=== PATIENT | female | born 1995 | race Caucasian/White ===

== ENCOUNTER 2017-02-09 12:59 | Inpatient (IN) | payer BC, OTHER ==
[~2017-02-09] VITALS: Ht 160 cm; Wt 71.7 kg
[2017-02-09] MEDS ORDERED: MAGNESIUM HYDROXIDE 30 ML LIQUID UDC PO PRN (17:00)
[2017-02-09] MEDS ORDERED: MIRALAX 17 GM POWD.PACK PO PRN (17:00)
[2017-02-09] MEDS ORDERED: LOPERAMIDE HCL 2 MG CAPSULE PO PRN ×2 (17:00)
[2017-02-09] MEDS ORDERED: HYDROXYZINE PAMOATE 25 MG CAPSULE PO PRN (17:00)
[2017-02-09] MEDS ORDERED: DICYCLOMINE HCL 20 MG TABLET PO PRN (17:00)
[2017-02-09] MEDS ORDERED: diphenhydrAMINE 50 MG CAPSULE PO PRN (17:00)
[2017-02-09] MEDS ORDERED: IBUPROFEN 400 MG TABLET PO PRN (17:00)
[2017-02-09] MEDS ORDERED: ACETAMINOPHEN 325 MG TABLET PO PRN (17:00)
[2017-02-09] MEDS ORDERED: ONDANSETRON ODT 4 MG TAB.RAPDIS SL PRN (17:00)
[2017-02-09] MEDS ORDERED: ONDANSETRON 4 MG/2 ML VIAL IM PRN (17:00)
[2017-02-09] MEDS ORDERED: MAG HYDROX/AL HYDROX/SIMETH 30 ML LIQUID UDC PO PRN (17:00)
[2017-02-09] MEDS ORDERED: QUET100T PO (17:39)
[2017-02-09] MEDS ORDERED: GABA300S PO ×2 (17:39)
[2017-02-09] MEDS ORDERED: CLON0.1T14 PO (17:39)
[2017-02-09] MEDS ORDERED: METH-406 PO (17:39)
[2017-02-09] MEDS ORDERED: ONDA8TAB9 PO (17:39)
[2017-02-09] MEDS ORDERED: HYDR-3026 PO (17:39)
[2017-02-09] MEDS ORDERED: BUPR2TAB3 SL (17:39)
[2017-02-09 18:44] LABS: *URINE HCG, QUAL NEGATIVE (NEGATIVE)
[2017-02-09 18:55] LABS: *AMPHETAMINE, URINE POSITIVE (NEGATIVE); *BARBITURATE, URINE NEGATIVE (NEGATIVE); *CANNABINOID, URINE NEGATIVE (NEGATIVE); *COCCAINE, URINE NEGATIVE (NEGATIVE); *OPIATE, URINE POSITIVE (NEGATIVE); *PHENCYCLIDINE SCREEN,URINE NEGATIVE (NEGATIVE)
[2017-02-09 19:36] LABS: BASOPHILS % (AUTO) 0.1 % (0.0-2.0); EOSINOPHILS % (AUTO) 0.7 % (0.0-7.0); HEMATOCRIT 42.2 % (31.2-41.9); HEMOGLOBIN 14.4 g/dL (10.9-14.3); LYMPHOCYTES # (AUTO) 1.3 K/uL (20.0-40.0); LYMPHOCYTES % (AUTO) 21.4 % (20.5-51.5); MEAN CORPUSCULAR HEMOGLOBIN 28.9 uug (24.7-32.8); MEAN CORPUSCULAR HGB CONC 34 g/dL (32.3-35.6); MEAN CORPUSCULAR VOLUME 84.6 fL (75.5-95.3); MONOCYTES # (AUTO) 0.5 K/uL (2.0-10.0); MONOCYTES % (AUTO) 8.7 % (0.0-11.0); NEUTROPHILS # (AUTO) 4.2 K/uL (1.8-8.9); NEUTROPHILS % (AUTO) 69.1 % (38.5-71.5); PLATELET COUNT (AUTO) 227 K/uL (179-408); RED BLOOD CELL COUNT(AUTO) 4.98 MIL/uL (3.63-4.92); RED CELL DISTRIBUTION WIDTH 11.8 % (12.3-17.7)
[2017-02-09 19:45] LABS: ALANINE AMINOTRANSFERASE 33 U/L (14-59); ALKALINE PHOSPHATASE 100 U/L (50-136); ASPARTATE AMINOTRANSFERASE 25 U/L (15-37); BILIRUBIN,TOTAL 0.7 mg/dL (0.2-1.0); CALCIUM 9.4 mg/dL (8.5-10.1); CARBON DIOXIDE 28 mmol/L (21-32); CHLORIDE 105 mmol/L (98-107); CREATININE 0.8 mg/dL (0.6-1.3); GFR 90 mL/min (>60); GLUCOSE 105 mg/dL (74-106); MAGNESIUM 2.3 mg/dL (1.8-2.4); SODIUM SERUM 144 mmol/L (136-145); TOTAL PROTEIN, SERUM 8.2 g/dL (6.4-8.2); UREA NITROGEN, BLOOD 6 mg/dL (7-18)
[2017-02-09] MEDS: BUPRENORPHINE HCL 2 MG TAB.SUBL SL PRN (19:47)
[2017-02-09 19:54] LABS: THYROID STIMULATING HORMONE 0.303 mIU/mL (0.358-3.740)
[2017-02-09 20:00] VITALS: BP 146/93
[2017-02-09 20:12] LABS: ETHANOL < 3 MG/DL (0-0)
[2017-02-09 20:14] LABS: HIV-1 p24 ANTIGEN NON REACTIVE (NONREACTIVE); HIV-1/2 ANTIBODY NON REACTIVE (NONREACTIVE)
[2017-02-09] MEDS: METHOCARBAMOL 750 MG TABLET PO PRN (20:21)
[2017-02-10] VITALS (7 sets, daily range): BP systolic 116–142; BP diastolic 78–91
[2017-02-10] MEDS: BUPRENORPHINE HCL 2 MG TAB.SUBL SL PRN (00:08)
[2017-02-10] MEDS: CLONIDINE HCL 0.1 MG TABLET PO PRN ×2 (00:18→20:49)
[2017-02-10] MEDS: GABAPENTIN 300 MG CAPSULE PO SCH ×3 (08:21→20:42)
[2017-02-10] MEDS: MULTIVITAMINS,THERAPEUTIC TABLET PO SCH (08:21)
[2017-02-10] MEDS ORDERED: BUPRENORPHINE HCL 2 MG TAB.SUBL SL SCH (09:00)
[2017-02-10] MEDS ORDERED: TUBERCULIN,PURIF.PROT.DERIV. 5 TU/0.1 ML TEST ID ONE (09:00)
[2017-02-10] MEDS ORDERED: LORAZEPAM 2 MG/1 ML VIAL IM PRN (12:15)
[2017-02-10] MEDS ORDERED: DIAZEPAM 10 MG TABLET PO PRN ×2 (12:15)
[2017-02-10] MEDS ORDERED: DIAZEPAM 5 MG TABLET PO PRN (12:15)
[2017-02-10] MEDS: DIAZEPAM 10 MG TABLET PO SCH ×3 (12:31→20:43)
[2017-02-10] MEDS: BUPRENORPHINE HCL 2 MG TAB.SUBL SL SCH ×3 (12:31→20:43)
[2017-02-10] MEDS: METHOCARBAMOL 750 MG TABLET PO PRN (20:43)
[2017-02-10] MEDS: QUETIAPINE FUMARATE 100 MG TABLET PO SCH (20:43)
[2017-02-11] VITALS: BP_SYST 111; BP_SYST 98; BP_DIAS 45; BP_DIAS 71
[2017-02-11] MEDS ORDERED: HYDROXYZINE PAMOATE 25 MG CAPSULE ONE (00:10)
[2017-02-11] MEDS: HYDROXYZINE PAMOATE 25 MG CAPSULE PO PRN ×2 (00:10→17:19)
[2017-02-11 04:00] VITALS: BP 98/45
[2017-02-11 08:00] VITALS: BP 104/61
[2017-02-11 08:16] LABS: BASOPHILS % (AUTO) 0.2 % (0.0-2.0); EOSINOPHILS # (AUTO) 0.2 K/uL (0.0-0.7); EOSINOPHILS % (AUTO) 2.2 % (0.0-7.0); LYMPHOCYTES % (AUTO) 37.7 % (20.5-51.5); MEAN CORPUSCULAR HEMOGLOBIN 29.1 uug (24.7-32.8); MEAN CORPUSCULAR HGB CONC 35 g/dL (32.3-35.6); MEAN CORPUSCULAR VOLUME 84.3 fL (75.5-95.3); MONOCYTES # (AUTO) 0.8 K/uL (2.0-10.0); MONOCYTES % (AUTO) 10.4 % (0.0-11.0); NEUTROPHILS % (AUTO) 49.5 % (38.5-71.5); PLATELET COUNT (AUTO) 188 K/uL (179-408); RED BLOOD CELL COUNT(AUTO) 4.45 MIL/uL (3.63-4.92); RED CELL DISTRIBUTION WIDTH 11.9 % (12.3-17.7)
[2017-02-11 08:23] LABS: HEMATOCRIT 37.5 % (31.2-41.9)
[2017-02-11] MEDS ORDERED: DIAZEPAM 5 MG TABLET PO SCH (09:00)
[2017-02-11] MEDS ORDERED: BUPRENORPHINE HCL 2 MG TAB.SUBL SL SCH ×2 (09:00→15:00)
[2017-02-11] MEDS: GABAPENTIN 300 MG CAPSULE PO SCH ×3 (09:14→21:33)
[2017-02-11] MEDS: BUPRENORPHINE HCL 2 MG TAB.SUBL SL SCH ×3 (09:14→21:33)
[2017-02-11] MEDS: MULTIVITAMINS,THERAPEUTIC TABLET PO SCH (09:14)
[2017-02-11 10:14] LABS: CREATININE 0.8 mg/dL (0.6-1.3); MAGNESIUM 2.3 mg/dL (1.8-2.4); PHOSPHOROUS 5.7 mg/dL (2.5-4.9); POTASSIUM 4.4 mmol/L (3.5-5.1)
[2017-02-11 12:00] VITALS: BP 126/61
[2017-02-11] MEDS: DIAZEPAM 10 MG TABLET PO SCH ×3 (13:28→21:33)
[2017-02-11 16:00] VITALS: BP 122/76
[2017-02-11] MEDS: CLONIDINE HCL 0.1 MG TABLET PO PRN (17:19)
[2017-02-11 17:59] LABS: THYROID STIMULATING HORMONE 1.562 mIU/mL (0.358-3.740)
[2017-02-11 20:19] VITALS: BP 130/78
[2017-02-11] MEDS: QUETIAPINE FUMARATE 100 MG TABLET PO SCH (21:33)
[2017-02-12 00:39] VITALS: BP 100/55
[2017-02-12 04:15] VITALS: BP 104/53
[2017-02-12 07:48] LABS: BASOPHILS % (AUTO) 0.4 % (0.0-2.0); EOSINOPHILS # (AUTO) 0.3 K/uL (0.0-0.7); EOSINOPHILS % (AUTO) 4.1 % (0.0-7.0); HEMATOCRIT 39.8 % (31.2-41.9); HEMOGLOBIN 13.5 g/dL (10.9-14.3); LYMPHOCYTES # (AUTO) 3.4 K/uL (20.0-40.0); LYMPHOCYTES % (AUTO) 55.5 % (20.5-51.5); MEAN CORPUSCULAR HEMOGLOBIN 28.5 uug (24.7-32.8); MEAN CORPUSCULAR HGB CONC 34 g/dL (32.3-35.6); MEAN CORPUSCULAR VOLUME 84.3 fL (75.5-95.3); MONOCYTES # (AUTO) 0.7 K/uL (2.0-10.0); MONOCYTES % (AUTO) 11.2 % (0.0-11.0); NEUTROPHILS # (AUTO) 1.8 K/uL (1.8-8.9); NEUTROPHILS % (AUTO) 28.8 % (38.5-71.5); PLATELET COUNT (AUTO) 192 K/uL (179-408); RED BLOOD CELL COUNT(AUTO) 4.72 MIL/uL (3.63-4.92); RED CELL DISTRIBUTION WIDTH 11.8 % (12.3-17.7); WHITE BLOOD COUNT (AUTO) 6.2 K/uL (3.8-11.8)
[2017-02-12 08:03] LABS: CALCIUM 9.1 mg/dL (8.5-10.1); CREATININE 0.7 mg/dL (0.6-1.3); MAGNESIUM 2.4 mg/dL (1.8-2.4); PHOSPHOROUS 5.4 mg/dL (2.5-4.9); POTASSIUM 4.3 mmol/L (3.5-5.1)
[2017-02-12 08:06] VITALS: BP 118/69
[2017-02-12] MEDS ORDERED: BUPRENORPHINE HCL 2 MG TAB.SUBL SL SCH ×2 (09:00)
[2017-02-12] MEDS ORDERED: DIAZEPAM 5 MG TABLET PO SCH (09:00)
[2017-02-12] MEDS: MULTIVITAMINS,THERAPEUTIC TABLET PO SCH (09:30)
[2017-02-12] MEDS: DIAZEPAM 5 MG TABLET PO SCH ×4 (09:30→20:58)
[2017-02-12] MEDS: GABAPENTIN 300 MG CAPSULE PO SCH ×3 (09:30→20:57)
[2017-02-12] MEDS ORDERED: IOHEXOL 350 100 ML INFUS..BTL ONE (11:26)
[2017-02-12] MEDS ORDERED: IV NORMAL SALINE 0 ML IV ONE (11:26)
[2017-02-12 13:10] VITALS: BP 130/81
[2017-02-12] MEDS: BUPRENORPHINE HCL 2 MG TAB.SUBL SL SCH ×2 (15:44→21:01)
[2017-02-12 18:00] VITALS: BP 141/80
[2017-02-12 20:00] VITALS: BP 140/88
[2017-02-12] MEDS: QUETIAPINE FUMARATE 100 MG TABLET PO SCH (20:57)
[2017-02-12] MEDS: CLONIDINE HCL 0.1 MG TABLET PO PRN (20:58)
[2017-02-13] VITALS: BP 118/75
[2017-02-13 04:00] VITALS: BP 108/61
[2017-02-13 05:06] LABS: HCV AB <0.1 s/co ratio (0.0-0.9); HEPATITIS B CORE AB, IgM Negative (Negative); HEPATITIS B SURFACE AG Negative (Negative)
[2017-02-13] MEDS ORDERED: IV NORMAL SALINE 250 ML IV ONE (06:43)
[2017-02-13] MEDS ORDERED: IOHEXOL 350 100 ML INFUS..BTL ONE (06:43)
[2017-02-13 08:00] VITALS: BP 106/68
[2017-02-13] MEDS ORDERED: BUPRENORPHINE HCL 2 MG TAB.SUBL SL SCH (09:00)
[2017-02-13] MEDS ORDERED: DIAZEPAM 5 MG TABLET PO SCH (09:00)
[2017-02-13] MEDS: DIAZEPAM 5 MG TABLET PO SCH ×3 (09:58→20:41)
[2017-02-13] MEDS: GABAPENTIN 300 MG CAPSULE PO SCH ×3 (09:58→20:41)
[2017-02-13] MEDS: MULTIVITAMINS,THERAPEUTIC TABLET PO SCH (09:58)
[2017-02-13] MEDS: BUPRENORPHINE HCL 2 MG TAB.SUBL SL SCH ×3 (09:59→20:40)
[2017-02-13 12:00] VITALS: BP 111/70
[2017-02-13 16:00] VITALS: BP 116/85
[2017-02-13 20:00] VITALS: BP 110/61
[2017-02-13] MEDS: QUETIAPINE FUMARATE 100 MG TABLET PO SCH (20:41)
[2017-02-14] VITALS (7 sets, daily range): BP systolic 102–145; BP diastolic 62–94
[2017-02-14] MEDS ORDERED: BUPRENORPHINE HCL 2 MG TAB.SUBL SL SCH (09:00)
[2017-02-14] MEDS: GABAPENTIN 300 MG CAPSULE PO SCH ×3 (09:10→20:33)
[2017-02-14] MEDS: BUPRENORPHINE HCL 2 MG TAB.SUBL SL SCH ×2 (09:11→20:33)
[2017-02-14] MEDS: MULTIVITAMINS,THERAPEUTIC TABLET PO SCH (09:11)
[2017-02-14] MEDS: DIAZEPAM 5 MG TABLET PO SCH ×2 (09:11→20:33)
[2017-02-14] MEDS: QUETIAPINE FUMARATE 100 MG TABLET PO SCH (20:33)
[2017-02-15] VITALS: BP 110/68
[2017-02-15 04:00] VITALS: BP 98/56
[2017-02-15 08:40] VITALS: BP 113/69
[2017-02-15] MEDS: MULTIVITAMINS,THERAPEUTIC TABLET PO SCH (08:44)
[2017-02-15] MEDS: GABAPENTIN 300 MG CAPSULE PO SCH ×3 (08:44→20:35)
[2017-02-15] MEDS ORDERED: BUPRENORPHINE HCL 2 MG TAB.SUBL SL SCH (09:00)
[2017-02-15] MEDS: HYDROXYZINE PAMOATE 25 MG CAPSULE PO PRN ×2 (09:47→20:44)
[2017-02-15 13:08] LABS: *AMPHETAMINE, URINE NEGATIVE (NEGATIVE); *BARBITURATE, URINE NEGATIVE (NEGATIVE); *CANNABINOID, URINE NEGATIVE (NEGATIVE); *COCCAINE, URINE NEGATIVE (NEGATIVE); *OPIATE, URINE NEGATIVE (NEGATIVE); *PHENCYCLIDINE SCREEN,URINE NEGATIVE (NEGATIVE)
[2017-02-15 13:48] VITALS: BP 130/79
[2017-02-15 17:00] VITALS: BP 132/75
[2017-02-15 20:00] VITALS: BP 134/81
[2017-02-15] MEDS: QUETIAPINE FUMARATE 100 MG TABLET PO SCH (20:35)
[2017-02-15] MEDS ORDERED: METH-33 PO (23:39)
[2017-02-15] MEDS ORDERED: Ibuprofen PO (23:39)
[2017-02-15] MEDS ORDERED: HYDR-3895 PO (23:39)
[2017-02-15] MEDS ORDERED: DICY20TA28 PO (23:39)
[2017-02-15] MEDS ORDERED: Gabapentin PO ×2 (23:39)
[2017-02-16] VITALS: BP 122/68
[2017-02-16 08:00] VITALS: BP 123/78
[2017-02-16] MEDS: GABAPENTIN 300 MG CAPSULE PO SCH (08:57)
[2017-02-16] MEDS: MULTIVITAMINS,THERAPEUTIC TABLET PO SCH (08:57)
[2017-02-16 12:00] VITALS: BP 115/78
[2017-02-16 13:25] LABS: *AMPHETAMINE Positive (.); *CODEINE Negative (Cutoff=300); *HYDROMORPHONE Negative (Cutoff=300); *METHAMPHETAMINE Positive (.); *OPIATES Positive ng/mL (Cutoff=300)
== END 2017-02-16 14:05 | disposition other institution (70) | DRG 895 ==
LOC: SRC 16:32
PROVIDERS: ADMIT Internal Medicine; ATTEND Internal Medicine
PROC: HZ2ZZZZ Detoxification Services for Substance Abuse Treatment (ICD-10-PCS; principal; 2017-02-09)
PROC: HZ41ZZZ Group Counseling for Substance Abuse Treatment, Behavioral (ICD-10-PCS; 2017-02-11)
PROC: HZ31ZZZ Individual Counseling for Substance Abuse Treatment, Behavioral (ICD-10-PCS; 2017-02-12)
DX: F11.23 Opioid dependence with withdrawal (principal); F15.20 Other stimulant dependence, uncomplicated; F41.0 Panic disorder [episodic paroxysmal anxiety]; Z59.1 Inadequate housing; Z82.49 Family history of ischemic heart disease and other diseases of the circulatory system; Z81.8 Family history of other mental and behavioral disorders; Z81.1 Family history of alcohol abuse and dependence; F17.210 Nicotine dependence, cigarettes, uncomplicated; F39 Unspecified mood [affective] disorder; E07.81 Sick-euthyroid syndrome; F13.230 Sedative, hypnotic or anxiolytic dependence with withdrawal, uncomplicated; E83.39 Other disorders of phosphorus metabolism; Z79.899 Other long term (current) drug therapy; F90.9 Attention-deficit hyperactivity disorder, unspecified type
CPT/HCPCS: 36415; 70030-TC; 80307; 80324; 80361; 83735; 84100; 84443; 84703; 85025; 86580; 86592; 86705; 86803; 87340; 87806; 93005; A4663; G6040-TC; J7050; Q0163; Q9967

== ENCOUNTER 2017-02-12 12:25 | Outpatient (CLI) | payer BC, OTHER ==
[~2017-02-12 12:25] MED LIST: BUPR2TAB3 SL; CLON0.1T14 PO; GABA300S PO; HYDR-3026 PO; METH-406 PO; ONDA8TAB9 PO; QUET100T PO
== END 2017-02-12 23:59 | disposition other institution (70) ==
LOC: LAB 12:25 → CT 23:59
PROVIDERS: ATTEND Internal Medicine
DX: J98.11 Atelectasis (principal)
CPT/HCPCS: 71275